=== PATIENT | female | born 1940 | race Caucasian/White ===

== ENCOUNTER 2016-10-06 09:26 | Day surgery (SDC) | payer MEDICARE, OTHER ==
--- NOTE | ~2016-10-06 | EGD ---
EGD REPORT [facility] [address] [address] NAME: BING GANN : [birth year] STATUS : REG [facility]#: [id number] AGE: 76 ADM/REG DATE : 10/06/16 MR#: [id number] REPORT SERV DATE: 10/06/16 DICTATED BY: MATT GARCIA DATE: 10/06/16 REPORT STATUS : Draft TRANSCRIBED BY: [employer] DATE: 10/06/16 [facility] Patient Name: Bing Gann Date of : 1940 Attending MD: MATT GARCIA MD Procedure Date No Time: 10/06/2016 Procedure: Colonoscopy Indications: Abdominal pain in the left lower quadrant, Clinically significant diarrhea of unexplained origin, FH of Colon Cancer - 1st degree relative Referring MD: MARILYN SOTELO MD Medicines: as per anesthesia Complications: No immediate complications. Procedure: Pre-Anesthesia Assessment: - ASA Grade Assessment: II - A patient with mild systemic disease. After I obtained informed consent, the scope was passed under direct vision. Throughout the procedure, the patient's blood pressure, pulse, and oxygen saturations were monitored continuously. The [facility] [id number] was introduced through the anus and advanced to the sigmoid colon. The colonoscopy was somewhat difficult due to multiple diverticula in the colon, restricted mobility of the colon and a tortuous colon. The patient tolerated the procedure. The quality of the bowel preparation was adequate to identify polyps. Findings: The perianal and digital rectal examinations were normal. A few small and large-mouthed diverticula were found in the sigmoid colon. scope could not be advanced due to fixation Impression: - Diverticulosis in the sigmoid colon. Recommendation: - Perform a single contrast barium enema. Procedure Code(s): --- Professional --- 80060, 52, Colonoscopy, flexible, proximal to splenic flexure; diagnostic, with or without collection of specimen(s) by brushing or washing, with or without colon decompression (separate procedure) Diagnosis Code(s): --- Professional --- K57.30, Diverticulosis of large intestine without EGD REPORT [address] [place]. [address] NAME: BING GANN : [birth year] STATUS : REG [facility]#: [id number] AGE: 76 ADM/REG DATE : 10/06/16 MR#: [id number] REPORT SERV DATE: 10/06/16 DICTATED BY: MATT GARCIA. DATE: 10/06/16 REPORT STATUS : Draft TRANSCRIBED BY: [employer] DATE: 10/06/16 perforation or abscess without bleeding R10.32, Left lower quadrant pain R19.7, Diarrhea, unspecified Z80.0, Family history of malignant neoplasm of digestive organs CPT copyright 2013 [employer]. All rights reserved. The codes documented in this report are preliminary and upon sticker operator review may be revised to meet current compliance requirements. MATT GARCIA MD 10/06/2016 1:12 PM This report has been signed electronically. Number of Addenda: 0 Note Initiated On: 10/06/2016 12:11 PM Scope Withdrawal Time 0 hours 0 minutes 0 [address] [place], [place] [address] [address]
[~2016-10-06 09:26] MED LIST: ADVIL PO; ASAB PO; B COMPLETE PO; COREG12 PO; ESTRACE0.5 MG PO; ESTRACE1 MG PO; FISH-EPA1000 MG PO; LEVSINTAB PO; MULTIPLE VIT PO; OTC ANTACID PO; PRILO PO; PRIN10 PO; UNISOM25 MG PO; VIT B PO; VITC500 PO; VITE1000 PO; WELCHOL 625 MG625 MG PO; WELCHOL625 MG OR
== END 2016-10-06 23:59 | disposition home or self-care (01) ==
LOC: DMU 09:26
PROVIDERS: Internal Medicine Gastroenterology
PROC: 0DJD8ZZ Inspection of Lower Intestinal Tract, Via Natural or Artificial Opening Endoscopic (ICD-10-PCS; principal; 2016-10-06 11:00)
DX: K57.30 Diverticulosis of large intestine without perforation or abscess without bleeding (principal); R10.32 Left lower quadrant pain; I10 Essential (primary) hypertension; K21.9 Gastro-esophageal reflux disease without esophagitis; K58.9 Irritable bowel syndrome, unspecified; E78.00 Pure hypercholesterolemia, unspecified; R19.7 Diarrhea, unspecified; Z96.1 Presence of intraocular lens; Z80.0 Family history of malignant neoplasm of digestive organs; Z98.41 Cataract extraction status, right eye; Z90.89 Acquired absence of other organs; Z98.42 Cataract extraction status, left eye; Z98.890 Other specified postprocedural states; M19.90 Unspecified osteoarthritis, unspecified site; Z90.49 Acquired absence of other specified parts of digestive tract; Z90.710 Acquired absence of both cervix and uterus; Z79.899 Other long term (current) drug therapy
CPT/HCPCS: 74270